=== PATIENT | male | born 1970 | race Caucasian/White ===

== ENCOUNTER → 2016-07-09 | Outpatient (CLI) | payer OTHER ==
[2015-11-02 19:43] VITALS: BP 142/84
--- NOTE | 2016-07-12 15:03 | MRI ---
HISTORY: LEFT SHOULDER PAIN. EXAM: NON CONTRAST MRI EXAM OF THE LEFT SHOULDER JOINT. TECHNIQUE: Multisequence and multiplanar T1 and T2 weighted sequences of the left shoulder were obta ined without the administration of IV paramagnetic contrast at 1.5 Blanca. COMPARISON: May 31, 2016. FINDINGS: The patient has undergone previous shoulder/rotator cuff surgery with a probable Giovanni procedure/a cromioplasty, as the distal clavicle has been resected. The supraspinatus is markedly atrophic, alth ough the atretic supraspinatus tendon appears intact without evidence for a full-thickness or high-g rade rotator cuff tear. The patient has undergone a presumed biceps tenodesis with postsurgical lane ges seen in the humeral head as well. No displaced labral tear is seen. There is no evidence for sub acromial or subdeltoid bursitis. 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 The subscapularis is intact. No acute fracture or pathologic bone marrow edema is seen. No other mu sculoskeletal injuries or abnormalities are identified. IMPRESSION: The patient has undergone previous shoulder/rotator cuff surgery with a probable Giovanni procedure/a cromioplasty, as the distal clavicle has been resected. The supraspinatus is markedly atrophic, alth ough the atretic supraspinatus tendon appears intact without evidence for a full-thickness or high-g rade rotator cuff tear. The patient has undergone a presumed biceps tenodesis with postsurgical lane ges seen in the humeral head as well. No displaced labral tear is seen. There is no evidence for sub acromial or subdeltoid bursitis. 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 The subscapularis is intact. No acute fracture or pathologic bone marrow edema is seen. No other mu sculoskeletal injuries or abnormalities are identified. Reported By:
== END ==
LOC: RAD 09:03
PROVIDERS: ATTEND Orthopaedic Surgery
DX: M25.511 Pain in right shoulder (principal)
CPT/HCPCS: 73221

== ENCOUNTER 2016-09-17 12:04 | Emergency (ER) | payer OTHER ==
[2016-09-17 12:09] VITALS: BP 157/100; BMI 29.2
--- NOTE | 2016-09-17 12:20 | DR.GENAD ---
HPI - PCP Primary Care Physician: ALEXA - Complaint/Symptoms Chief Complaint:: PT. STATES HE WAS EATING A BOXED DIGORNIO PIZZA LAST NIGHT FROM [place] AND HAD SWALLOWED SEVERAL SLICES BEFORE HE REALIZED THERE WERE METAL PIECES IN THE PIZZA. PT. C/O ABDOMINAL DISCOMFORT. - Source History Provided: Patient - Mode of Arrival Mode of Arrival: Ambulatory - Timing Onset of Chief Complaint: 09/16/16 PMH - PMH Past Medical History: No Past Medical History: Kidney Stones Past Surgical History: Yes Surgical History: Tonsillectomy, Other - Family History History of Family Medical Conditions: Yes Family Medical History: Cancer - Social History Does patient currently use any type of tobacco product: No Have you used tobacco products in the last 12 months: No Type of Tobacco Use: None Does any household member use tobacco: No Alcohol Use: None Do you use any recreational Drugs:: No Lives With: Family Lives Where: Home - infectious screening In the last 2 months have you had wt loss of >10#?: NO Have you had fever, night sweats or hemotysis?: No Have you traveled outside the country in the last 6 months?: No Isolation: Standard PE - Vital Signs Vitals: Temperature 98.1 F Pulse Rate 74 Respiratory Rate 18 Blood Pressure [Right Arm] 120/70 Blood Pressure 157/100 O2 Sat by Pulse Oximetry 96 - Discharge Plan Condition: Stable - Follow ups/Referrals Follow ups/Referrals: Mo Pitts [Primary Care Provider] - 3 days - Instructions
--- NOTE | 2016-09-17 12:35 | DR.GENAD ---
HPI - PCP Primary Care Physician: ALEXA - Complaint/Symptoms Chief Complaint Doctors Comments: Patient reports that he ate pizza on two days ago, today started to eat additional pieces and noted metal fragments. Denies blood. Chief Complaint:: PT. STATES HE WAS EATING A BOXED DIGORNIO PIZZA LAST NIGHT FROM [employer] AND HAD SWALLOWED SEVERAL SLICES BEFORE HE REALIZED THERE WERE METAL PIECES IN THE PIZZA. PT. C/O ABDOMINAL DISCOMFORT. - Source History Provided: Patient - Mode of Arrival Mode of Arrival: Ambulatory - Timing Onset of Chief Complaint: 09/16/16 PMH - PMH Past Medical History: No Past Medical History: Kidney Stones Past Surgical History: Yes Surgical History: Tonsillectomy, Other - Family History History of Family Medical Conditions: Yes Family Medical History: Cancer - Social History Does patient currently use any type of tobacco product: No Have you used tobacco products in the last 12 months: No Type of Tobacco Use: None Does any household member use tobacco: No Alcohol Use: None Do you use any recreational Drugs:: No Lives With: Family Lives Where: Home - infectious screening In the last 2 months have you had wt loss of >10#?: NO Have you had fever, night sweats or hemotysis?: No Have you traveled outside the country in the last 6 months?: No Isolation: Standard ROS - Review of Systems Eyes: No Symptoms Reported ENTM: No Symptoms Reported Respiratoy: No Symptoms Reported Cardiovascular: No Symptoms Reported Gastrointestinal/Abdominal: No Symptoms Reported Genitourinary: No Symptoms Reported Neurological: No Symptoms Reported Musculoskeletal: No Symptoms Reported Integumentary: No Symptoms Reported Hematologic/Lymphatic: No Symptoms Reported Endocrine: No Symptoms Reported Psychiatric: No Symptoms Reported All Other Systems: Reviewed and Negative PE - Vital Signs Vitals: Temperature 98.1 F Pulse Rate 74 Respiratory Rate 18 Blood Pressure [Right Arm] 120/70 Blood Pressure 157/100 O2 Sat by Pulse Oximetry 96 - General General Appearance: Alert, In No Apparent Distress - Head Head Exam: Normal Inspection, Atraumatic - Eyes Eye exam: Normal Appearance, PERRL, EOMI - ENT ENT Exam: Normal Exam External Ear Exam: Normal External Inspection TM/Canal Exam: Bilateral Normal Nose Exam: Normal Nose Exam Mouth Exam: Normal Inspection Throat Exam: Normal Inspection - Neck Neck Exam: Normal Inspection - Chest Chest Inspection: Normal Inspection - Respiratory Respiratory Exam: Normal Lung Sounds Bilat Respiratory Exam: Bilateral Clear to Auscultation - Cardiovascular Cardiovascular Exam: Regular Rate, Normal Rhythm - Abdominal Exam Abdominal Exam: Normal Inspection, Normal Bowel Sounds Abdominal Tenderness: negative: RUQ, RLQ, LUQ, LLQ, Epigastrium, Suprapubic, Diffuse, Mild, Moderate, Severe, Other - Extremities Extremities Exam: Normal Inspection, Full ROM - Back Back Exam: Normal Inspection, Full ROM - Neurologic Neurological Exam: Alert, Oriented X3, CN II-XII Intact - Psychiatric Psychiatric Exam: Normal Affect - Skin Skin Exam: Warm, Dry, Intact ROR - XRAY XRAY Interpreted by: Radiologist (Flat and upright views of the abdomen demonstrates a normal bowel gas pattern. No free air. No abnormal calcifications or abnormal soft tissue shadows. Small radiopaque objects can be seen overlying the gastric buddle. No acute bony abnormalities. Impression: No acute cardiopulmonary disease. Small readiopaque opacities overlying the gastric bubble may represent the ingested wrapper and are likely inconsequential clinically.) - Diagnosis Discharge Problem: foreign body in abdomen - Discharge Plan Condition: Stable - Follow ups/Referrals Follow ups/Referrals: Mo Pitts [Primary Care Provider] - 3 days - Instructions
--- NOTE | 2016-09-17 12:54 | RAD ---
HISTORY: Ate metallic wrapper. Study: Frontal view of the chest, flat and upright views of the abdomen Comparison: None. Findings: Cardiomediastinal silhouette is normal in size. No focal consolidations, pleural effusions or pneumo thorax. Osseous structures are without acute abnormality. Flat and upright views of the abdomen demonstrates a normal bowel gas pattern. No free air. No abno rmal calcifications or abnormal soft tissue shadows. Small radiopaque objects can be seen overlying the gastric bubble. No acute bony abnormalities. IMPRESSION: 1. No acute cardiopulmonary disease. 2. Small radiopaque opacities overlying the gastric bubble may represent the ingested wrapper and a re likely inconsequential clinically. Reported By:
== END 2016-09-17 13:29 | disposition home or self-care (01) ==
LOC: ER 12:17
DX: T18.9XXA Foreign body of alimentary tract, part unspecified, initial encounter (principal)
CPT/HCPCS: 74022; 99282

== ENCOUNTER 2016-09-20 19:05 | Emergency (ER) | payer OTHER ==
[2016-09-20 19:14] VITALS: BP 130/90; BMI 29.7
[2016-09-20] MEDS ORDERED: NS 1000 ML 1,000 ML IV SCH (20:00)
--- NOTE | 2016-09-20 20:09 | DR.GENAD ---
HPI - PCP Primary Care Physician: Hong - HPI Comment HPI Comment: PATIENT SAID HE HAD BLOOD IN STOOL THAT WAS BRIGHT RED. BLOOD IN STOOL MINIMAL NO FEVER. DENIES SWALLOWING ANY CHEMICAL. NO VOMITING OR DIARRHEA. WAS NOT ABLE TO GIVE STOOL SPECIMEN IN ED FOR ANALYSIS. - Complaint/Symptoms Chief Complaint Doctors Comments: GI BLEED. ATE MENTAL THAT WAS ON PIZZA SEVERAL DAYS AGO. NOW HAVE GI BLEEDING. PAIN RT ABDOMEN. Chief Complaint:: " I was in here at couple days ago i swallowed a bunch of metal that was on a pizza and now i have been bleeding since 09/18/16 and having bad pain in my right abdomen. - Nurses notes reviewed Nurses Notes Review: Yes - Source History Provided: Patient - Mode of Arrival Mode of Arrival: Ambulatory - Timing Onset of Chief Complaint: 09/17/16 Came on: Gradually - Duration Duration: Intermittent Duration: Days - Severity Severity: Moderate PMH - PMH Past Medical History: Yes Past Medical History: Kidney Stones Past Surgical History: Yes Surgical History: Ortho Surgery, Tonsillectomy, Other - Family History History of Family Medical Conditions: Yes Family Medical History: Cancer - Social History Alcohol Use: Rarely Do you use any recreational Drugs:: No Lives With: Alone Lives Where: Home - infectious screening Have you traveled outside the country in the last 6 months?: No ROS - Review of Systems Constitutional: No Symptoms Reported. negative: Chills, Fever, Weakness, Fatigue, Loss of Appetite Eyes: No Symptoms Reported. negative: Eye Pain, Discharge ENTM: No Symptoms Reported. negative: Ear Pain, Nose Discharge, Nose Congestion , Throat Pain Respiratoy: No Symptoms Reported. negative: Productive Cough, Non-Productive Cough, Short of Breath, Wheezing, Hemoptysis Cardiovascular: No Symptoms Reported. negative: Chest Pain, Edema, Palpitations , Syncope Gastrointestinal/Abdominal: No Symptoms Reported, Abdominal Pain, Other (BLOOD IN STOOL.). negative: Constipation, Diarrhea, Nausea, Vomiting Genitourinary: No Symptoms Reported. negative: Dysuria, Frequency, Hematuria Neurological: No Symptoms Reported Musculoskeletal: No Symptoms Reported Integumentary: No Symptoms Reported Hematologic/Lymphatic: No Symptoms Reported Endocrine: No Symptoms Reported All Other Systems: Reviewed and Negative PE - Vital Signs Vitals: Temperature 97.6 F Pulse Rate 97 Respiratory Rate 19 Blood Pressure [Right Arm] 120/70 Blood Pressure 130/90 O2 Sat by Pulse Oximetry 98 - General Limitations: No Limitations General Appearance: Alert - Head Head Exam: Normal Inspection - Eyes Eye exam: Normal Appearance - ENT ENT Exam: Normal External Ear Exam External Ear Exam: Normal External Inspection TM/Canal Exam: Bilateral Normal Nose Exam: Normal Nose Exam Mouth Exam: Normal Inspection Throat Exam: Normal Inspection - Neck Neck Exam: Trachea Midline - Chest Chest Inspection: Symmetric Chest Wall Rise - Respiratory Respiratory Exam: Normal Lung Sounds Bilat Respiratory Exam: Bilateral Clear to Auscultation - Cardiovascular Cardiovascular Exam: Regular Rate, Normal Rhythm, Normal Heart Sounds - Abdominal Exam Abdominal Exam: Normal Bowel Sounds, Soft. negative: Tenderness - Extremities Extremities Exam: Normal Inspection - Back Back Exam: Normal Inspection - Neurologic Neurological Exam: Alert, Oriented X3 - Psychiatric Psychiatric Exam: Normal Affect, Normal Mood - Skin Skin Exam: Normal Color MDM - Differential Diagnosis Differential Diagnosis: ABDOMINAL PAIN, FB INGESTION, METAL, GI BELLD, BOWEL PERFORATION Course - Treatment Treatment: SEE ORDERS - Education/Counseling Education/Counseling: Patient, Education Educated On: Treatment, Diagnosis, Needs for Follow Up ROR - Labs Reviewed Laboratory Results Reviewed?: Yes Result Diagrams: 09/20/16 20:09 09/20/16 20:09 Laboratory: WBC 9.4 X10^3/uL (3.6-10.0) 09/20/16 20:09 RBC 4.96 X10^6/uL (4.7-6.0) 09/20/16 20:09 Hgb 14.9 g/dL (13.5-18.0) 09/20/16 20:09 Hct 43.1 % (42.0-54.0) 09/20/16 20:09 MCV 86.8 fL (80.0-100.0) 09/20/16 20:09 MCH 30.0 pg (27.0-34.0) 09/20/16 20:09 MCHC 34.6 g/dL (33.0-35.0) 09/20/16 20:09 RDW 13.1 % (11.6-16.5) 09/20/16 20:09 Plt Count 310 X10^3/uL (150.0-450.0) 09/20/16 20:09 MPV 8.1 fL (7.4-11.0) 09/20/16 20:09 Neut % 79.5 % (42.0-75.0) H 09/20/16 20:09 Lymph % 12.8 % (21.0-51.0) L 09/20/16 20:09 [place] % 6.5 % (0.0-13.0) 09/20/16 20:09 Eos % 0.5 % (0.9-2.9) L 09/20/16 20:09 Baso % 0.7 % (0.2-1.0) 09/20/16 20:09 Neut # 7.5 x10^3/uL (2.2-4.8) H 09/20/16 20:09 Lymph # 1.2 X10^3/uL (1.3-2.9) L 09/20/16 20:09 [place] # 0.6 x10^3/uL (0.3-0.8) 09/20/16 20:09 Eos # 0.0 x10^3/uL (0.0-0.2) 09/20/16 20:09 Baso # 0.1 X10^3/uL (0.0-0.1) 09/20/16 20:09 Absolute Nucleated RBC 0.0 /100WBC 09/20/16 20:09 Sodium 145 mmol/L (136-145) 09/20/16 20:09 Corrected Sodium 145 mmol/L (136-145) 09/20/16 20:09 Potassium 3.5 mmol/L (3.5-5.1) 09/20/16 20:09 Chloride 107 mmol/L (98-107) 09/20/16 20:09 Carbon Dioxide 26.1 mmol/L (21-32) 09/20/16 20:09 BUN 17 mg/dL (7-18) 09/20/16 20:09 Creatinine 1.14 mg/dL (0.70-1.30) 09/20/16 20:09 Est GFR (MDRD) Af Amer > 60 (>60) 09/20/16 20:09 Est GFR (MDRD) Non-Af > 60 (>60) 09/20/16 20:09 Glucose 115 mg/dL (65-99) H 09/20/16 20:09 Calcium 9.0 mg/dL (8.5-10.1) 09/20/16 20:09 Corrected Calcium TNP 09/20/16 20:09 Total Bilirubin 0.20 mg/dL (0.2-1.0) 09/20/16 20:09 AST 14 Units/L (15-37) L 09/20/16 20:09 ALT 35 Units/L (12-78) 09/20/16 20:09 Alkaline Phosphatase 57 Units/L (46-116) 09/20/16 20:09 Total Protein 7.4 g/dL (6.4-8.2) 09/20/16 20:09 Albumin 4.1 g/dL (3.4-5.0) 09/20/16 20:09 Globulin 3.3 g/dL (2.5-4.5) 09/20/16 20:09 Albumin/Globulin Ratio 1.2 Ratio (1.1-2.1) 09/20/16 20:09 Stool Description Fob tube 09/20/16 22:34 Stl Occult Blood (IFOB) Positive (NEGATIVE) A 09/20/16 22:34 - XRAY XRAY Interpreted by: Radiologist XRAY Findings: REPORT DISCUSS WITH PATIENT. - Diagnosis Discharge Problem: Abdominal pain Qualifiers: Abdominal location: right lower quadrant Qualified Code(s): R10.31 - Right lower quadrant pain GI bleed Qualifiers: GI bleed type/associated pathology: unspecified gastrointestinal hemorrhage type Qualified Code(s): K92.2 - Gastrointestinal hemorrhage, unspecified - Discharge Plan Disposition: 01 HOME, SELF-CARE Condition: Stable Prescriptions: Ranitidine HCl [ZANTAC TAB 150 MG *] 150 mg PO BID #60 tab - Follow ups/Referrals Follow ups/Referrals: Mo Pitts [Primary Care Provider] - 09/21/16 WILLIAM ELIAS [STAFF PHYSICIAN] - 09/21/16 - Instructions Instructions: Abdominal Pain, Adult, [id number], Gastrointestinal Bleeding, [id number] Additional Instructions: RETURN TO ED IF WORSE.
[2016-09-20 20:14] LABS: BASOPHILS # (AUTO) 0.1 X10^3/uL (0.0-0.1); BASOPHILS % (AUTO) 0.7 % (0.2-1.0); EOSINOPHILS % (AUTO) 0.5 % (0.9-2.9); HEMATOCRIT 43.1 % (42.0-54.0); HEMOGLOBIN 14.9 g/dL (13.5-18.0); LYMPHOCYTES # (AUTO) 1.2 X10^3/uL (1.3-2.9); LYMPHOCYTES % (AUTO) 12.8 % (21.0-51.0); MEAN CORPUSCULAR HGB CONC 34.6 g/dL (33.0-35.0); MEAN CORPUSCULAR VOLUME 86.8 fL (80.0-100.0); MEAN PLATELET VOLUME 8.1 fL (7.4-11.0); MONOCYTES # (AUTO) 0.6 x10^3/uL (0.3-0.8); MONOCYTES % (AUTO) 6.5 % (0.0-13.0); NEUTROPHILS # (AUTO) 7.5 x10^3/uL (2.2-4.8); NEUTROPHILS % (AUTO) 79.5 % (42.0-75.0); PLATELET COUNT 310 X10^3/uL (150.0-450.0); RED BLOOD COUNT 4.96 X10^6/uL (4.7-6.0); RED CELL DISTRIBUTION WIDTH 13.1 % (11.6-16.5); WHITE BLOOD COUNT 9.4 X10^3/uL (3.6-10.0)
[2016-09-20 20:26] LABS: ALANINE AMINOTRANSFERASE 35 Units/L (12-78); ALBUMIN 4.1 g/dL (3.4-5.0); ALKALINE PHOSPHATASE 57 Units/L (46-116); ASPARTATE AMINO TRANSFERASE 14 Units/L (15-37); BLOOD UREA NITROGEN 17 mg/dL (7-18); CARBON DIOXIDE 26.1 mmol/L (21-32); CHLORIDE 107 mmol/L (98-107); COR NA(FOR HYPERGLY) 145 mmol/L (136-145); CREATININE 1.14 mg/dL (0.70-1.30); GLUCOSE 115 mg/dL (65-99); SODIUM 145 mmol/L (136-145); TOTAL PROTEIN 7.4 g/dL (6.4-8.2); eGFR BLACK RACES > 60 (>60); eGFR NON BLACK RACES > 60 (>60)
[2016-09-20] MEDS ORDERED: NS 1000 ML 1,000 ML ONE (20:28)
--- NOTE | 2016-09-20 22:22 | CT ---
STUDY: CT ABDOMEN AND PELVIS WITHOUT IV AND ORAL CONTRAST HISTORY: Foreign body. Patient swallowed metal from a pizza. Severe abdominal pain. Right upper quad rant, lower abdomen, rectal bleeding. Comparison: CT abdomen pelvis from October 10, 2013. Technique: Multiple axial images of the abdomen and pelvis were obtained from the lung bases to the pubic symphysis without the administration of IV contrast. Findings: The visualized portions of the lung bases are unremarkable. CT abdomen: The liver, gallbladder, spleen, pancreas, kidneys, and adrenal glands are normal in appe arance. No significant mesenteric lymphadenopathy or inflammatory stranding is appreciated. There is a metallic foreign body with associated streak artifact along the lateral surface of the right lobe of the liver. This is unchanged since the prior CT examination. The stomach is normal in appearance. The small bowel is normal in appearance, without evidence of mariah wel wall thickening or small bowel obstruction. The terminal ileum and cecum are normal. The append ix is normal in appearance. There is no evidence of periappendiceal fat stranding. The ascending, t ransverse and descending colon are within normal limits. There are a number of high density foreign bodies within the lumen of the colon. There is 1 small focus in the region of the cecum. There is a linear high density focus in the transverse colon. CT pelvis: The sigmoid colon and the rectum are within normal limits. The urinary bladder is normal. No abnormal fluid collections are identified in the pelvis. There is a small high density focus in the mid sigmoid colon. There is a linear high density focus in the distal sigmoid colon near the rec tosigmoid junction. There is no evidence of acute osseous abnormality. IMPRESSION: 1. No evidence of acute abdominal or pelvic abnormality. 2. High density foci within the colon as described, possibly representing foreign bodies. These for eign bodies do not generate beam hardening are streak artifact, raising questions regarding there co mposition. Clinical correlation is recommended. 3. Small metallic foreign body with associated streak artifact adjacent to the right lobe of the li lawanda, unchanged from the prior CT. Clinical correlation is recommended. Reported By:
[2016-09-20] MEDS ORDERED: ZANTAC PO ONE ×2 (23:40→23:50)
== END 2016-09-21 00:18 | disposition home or self-care (01) ==
LOC: ER 19:17
DX: K92.2 Gastrointestinal hemorrhage, unspecified (principal); R10.31 Right lower quadrant pain
CPT/HCPCS: 36415; 74176; 80053; 82270; 85025; 96365; 96367; 99283; A4222

== ENCOUNTER 2016-09-24 09:31 | Inpatient (IN) | payer OTHER ==
[2016-09-24 09:36] VITALS: BMI 29.0
--- NOTE | 2016-09-24 10:02 | DR.GENAD ---
HPI - PCP Primary Care Physician: ALEXA - HPI Comment HPI Comment: HISTORY BELOW. PATIENT SAID PAIN MOST IN RUQ AREA. - Complaint/Symptoms Chief Complaint Doctors Comments: PATIENT ATE P[place]AN[place] ALLEGE TO HAVE PIECES OF METSLS. SEEN IN ED, KUB REVEAL FB. RETUR TO ED DUE TO RECTAL BLEEDING. NON CONTRAST CT ABD/PELVIS SHOWEWD COLONIC FB, TODAY, PATIENT RETURN TO ED BECAUSE HE IE VOMITING BLOOD AND HAVING ABDOMINAL PAIN. NO ACTIVE VOMITING WHILE IN ED. STILL HAVING ABDOMIAL PAIN.STOOLS CONTINUE TO CONTAIN BLOOD. NO FEVER. Chief Complaint:: PT STARTED THROWING UP BLOOD THIS MORNING PT SWOLLED METTLE ON THE OF THIS MONTH - Nurses notes reviewed Nurses Notes Review: Yes - Source History Provided: Patient - Mode of Arrival Mode of Arrival: Ambulatory - Timing Onset of Chief Complaint: 09/15/16 Came on: Suddenly - Duration Duration: Constant Duration: Days - Severity Severity: Moderate PMH - PMH Past Medical History: Yes Past Medical History: Kidney Stones Past Surgical History: Yes Surgical History: Ortho Surgery, Tonsillectomy, Other - Family History History of Family Medical Conditions: Yes Family Medical History: Cancer - Social History Does patient currently use any type of tobacco product: No Have you used tobacco products in the last 12 months: No Type of Tobacco Use: None Does any household member use tobacco: No Alcohol Use: None Do you use any recreational Drugs:: No Lives With: Family Lives Where: Home - infectious screening In the last 2 months have you had wt loss of >10#?: NO Have you had fever, night sweats or hemotysis?: No Have you traveled outside the country in the last 6 months?: No Isolation: Standard ROS - Review of Systems Constitutional: negative: Chills, Fever, Weakness, Fatigue Eyes: No Symptoms Reported ENTM: No Symptoms Reported Respiratoy: No Symptoms Reported Cardiovascular: No Symptoms Reported Gastrointestinal/Abdominal: Abdominal Pain Genitourinary: Bleeding (RECTUM, HEMATEMESIS) Neurological: No Symptoms Reported Musculoskeletal: No Symptoms Reported Integumentary: No Symptoms Reported Hematologic/Lymphatic: No Symptoms Reported Endocrine: No Symptoms Reported All Other Systems: Reviewed and Negative PE - Vital Signs Vitals: Temperature 97.6 F Pulse Rate 87 Respiratory Rate 18 Blood Pressure [Right Arm] 120/70 Blood Pressure 126/79 O2 Sat by Pulse Oximetry 98 - General Limitations: No Limitations General Appearance: Alert - Head Head Exam: Normal Inspection - ENT ENT Exam: Normal External Ear Exam External Ear Exam: Normal External Inspection TM/Canal Exam: Bilateral Normal Nose Exam: Normal Nose Exam Mouth Exam: Normal Inspection Throat Exam: Normal Inspection - Neck Neck Exam: Normal Inspection - Chest Chest Inspection: Symmetric Chest Wall Rise - Respiratory Respiratory Exam: Normal Lung Sounds Bilat Respiratory Exam: Bilateral Clear to Auscultation - Cardiovascular Cardiovascular Exam: Regular Rate, Normal Rhythm, Normal Heart Sounds - Abdominal Exam Abdominal Exam: Normal Bowel Sounds, Soft, Tenderness Abdominal Tenderness: RUQ, Diffuse, Moderate - Extremities Extremities Exam: Normal Inspection - Back Back Exam: Normal Inspection - Neurologic Neurological Exam: Alert, Oriented X3 - Psychiatric Psychiatric Exam: Normal Affect, Normal Mood - Skin Skin Exam: Normal Color MDM - Differential Diagnosis Differential Diagnosis: ABDOMINAL PAIN, GI BLEEDING Course - Treatment Treatment: SEE ORDERS. IV FLUIDS AND PAIN MED IN ED. - Consultation Consultation Comments: DISCUSS WITH GI DR. ELIAS, DR LIU TO ADMIT PATIENT. HE WILL SEE HIM TOMORROW. DR. LIU ACCETPTED PATIENT FOR ADMIT. - Education/Counseling Education/Counseling: Patient, Education Educated On: Diagnosis ROR - Labs Reviewed Laboratory Results Reviewed?: Yes Result Diagrams: 09/25/16 03:45 09/25/16 03:45 - XRAY XRAY Interpreted by: Radiologist XRAY Findings: REPORT DISCUSS WITH PATIENT. - Diagnosis Discharge Problem: RUQ abdominal pain Abdominal pain Qualifiers: Abdominal location: generalized Qualified Code(s): R10.84 - Generalized abdominal pain GI bleed Qualifiers: GI bleed type/associated pathology: unspecified gastrointestinal hemorrhage type Qualified Code(s): K92.2 - Gastrointestinal hemorrhage, unspecified - Discharge Plan Disposition: ADMITTED INPATIENT Condition: Stable - Follow ups/Referrals - Instructions
[2016-09-24] MEDS ORDERED: NS 100 ML IV 100 ML IV ONE (10:09)
[2016-09-24] MEDS ORDERED: PROTONIX INJ 40 MG VIAL ONE (10:09)
[2016-09-24] MEDS ORDERED: ZOFRAN INJ 4 MG VIAL IVP ONE (10:23)
[2016-09-24] MEDS ORDERED: DEMEROL INJ IVP ONE (10:24)
[2016-09-24] MEDS ORDERED: DEMEROL INJ ONE (10:25)
[2016-09-24] MEDS ORDERED: ZOFRAN INJ 4 MG VIAL ONE (10:25)
[2016-09-24 10:39] LABS: BASOPHILS % (AUTO) 0.6 % (0.2-1.0); EOSINOPHILS # (AUTO) 0.1 x10^3/uL (0.0-0.2); EOSINOPHILS % (AUTO) 0.8 % (0.9-2.9); HEMOGLOBIN 15.8 g/dL (13.5-18.0); LYMPHOCYTES # (AUTO) 0.9 X10^3/uL (1.3-2.9); LYMPHOCYTES % (AUTO) 11.8 % (21.0-51.0); MEAN CORPUSCULAR HGB CONC 34.3 g/dL (33.0-35.0); MEAN CORPUSCULAR VOLUME 87.3 fL (80.0-100.0); MEAN PLATELET VOLUME 8.2 fL (7.4-11.0); MONOCYTES # (AUTO) 0.5 x10^3/uL (0.3-0.8); NEUTROPHILS # (AUTO) 6.3 x10^3/uL (2.2-4.8); NEUTROPHILS % (AUTO) 79.8 % (42.0-75.0); PLATELET COUNT 297 X10^3/uL (150.0-450.0); RED BLOOD COUNT 5.27 X10^6/uL (4.7-6.0); WHITE BLOOD COUNT 7.9 X10^3/uL (3.6-10.0)
[2016-09-24] MEDS: NS 1000 ML 1,000 ML IV SCH ×2 (10:43→19:07)
[2016-09-24] MEDS: PROTONIX INJ 40 MG VIAL 80 MG in NS 100 ML IV 80 ML IV SCH ×2 (10:43→19:07)
[2016-09-24 10:44] LABS: ALANINE AMINOTRANSFERASE 38 Units/L (12-78); ALBUMIN 4.3 g/dL (3.4-5.0); ALKALINE PHOSPHATASE 60 Units/L (46-116); AMYLASE 28 Units/L (25-115); ASPARTATE AMINO TRANSFERASE 15 Units/L (15-37); BLOOD UREA NITROGEN 15 mg/dL (7-18); CALCIUM 9.1 mg/dL (8.5-10.1); CARBON DIOXIDE 28.4 mmol/L (21-32); CHLORIDE 103 mmol/L (98-107); CREATININE 1.01 mg/dL (0.70-1.30); GLUCOSE 103 mg/dL (65-99); LIPASE 70 Units/L (73-393); SODIUM 141 mmol/L (136-145); TOTAL PROTEIN 7.9 g/dL (6.4-8.2); eGFR BLACK RACES > 60 (>60); eGFR NON BLACK RACES > 60 (>60)
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
[2016-09-24] MEDS ORDERED: ZOFRAN INJ 4 MG VIAL IVP PRN (12:56)
[2016-09-24] MEDS: DEMEROL INJ IVP PRN ×2 (14:15→20:40)
[2016-09-24 23:10] LABS: BILIRUBIN,URINE NEGATIVE (NEGATIVE); BLOOD/HEMOGLOBIN,URINE NEGATIVE (NEGATIVE); GLUCOSE, URINE NEGATIVE (NEGATIVE); KETONES,URINE NEGATIVE (NEGATIVE); LEUKOCYTE ESTERASE ,URINE NEGATIVE (NEGATIVE); NITRITES,URINE NEGATIVE (NEGATIVE); PROTEIN,URINE NEGATIVE (NEGATIVE); UROBILINOGEN,URINE NORMAL (NORMAL)
[2016-09-24 23:17] LABS: AMORPHOUS SEDIMENT,UR TRACE /HPF (NEGATIVE); APPEARANCE,URINE CLEAR (CLEAR); BACTERIA,URINE NEGATIVE /HPF (NEGATIVE); COLOR,URINE PALE YELLOW (YELLOW); RBC,URINE 0-1 /HPF (NEGATIVE); SQUAMOUS EPITHELIAL CELL,UR NEGATIVE /HPF (NEGATIVE)
[2016-09-25] MEDS: NS 1000 ML 1,000 ML IV SCH ×3 (02:49→19:01)
[2016-09-25] MEDS: DEMEROL INJ IVP PRN ×4 (02:49→21:09)
[2016-09-25] MEDS: PROTONIX INJ 40 MG VIAL 80 MG in NS 100 ML IV 80 ML IV SCH ×3 (02:50→07:49)
[2016-09-25 05:06] LABS: BASOPHILS % (AUTO) 0.3 % (0.2-1.0); EOSINOPHILS # (AUTO) 0.1 x10^3/uL (0.0-0.2); EOSINOPHILS % (AUTO) 1.3 % (0.9-2.9); HEMATOCRIT 40.8 % (42.0-54.0); HEMOGLOBIN 13.9 g/dL (13.5-18.0); LYMPHOCYTES # (AUTO) 1.4 X10^3/uL (1.3-2.9); LYMPHOCYTES % (AUTO) 15.8 % (21.0-51.0); MEAN CORPUSCULAR HEMOGLOBIN 29.8 pg (27.0-34.0); MEAN CORPUSCULAR HGB CONC 34.2 g/dL (33.0-35.0); MEAN CORPUSCULAR VOLUME 87.2 fL (80.0-100.0); MEAN PLATELET VOLUME 8.4 fL (7.4-11.0); MONOCYTES # (AUTO) 0.6 x10^3/uL (0.3-0.8); MONOCYTES % (AUTO) 6.8 % (0.0-13.0); NEUTROPHILS # (AUTO) 6.5 x10^3/uL (2.2-4.8); NEUTROPHILS % (AUTO) 75.8 % (42.0-75.0); PLATELET COUNT 249 X10^3/uL (150.0-450.0); RED BLOOD COUNT 4.67 X10^6/uL (4.7-6.0); WHITE BLOOD COUNT 8.6 X10^3/uL (3.6-10.0)
[2016-09-25 05:22] LABS: ALANINE AMINOTRANSFERASE 32 Units/L (12-78); ALBUMIN 3.4 g/dL (3.4-5.0); ALKALINE PHOSPHATASE 45 Units/L (46-116); ASPARTATE AMINO TRANSFERASE 14 Units/L (15-37); BLOOD UREA NITROGEN 7 mg/dL (7-18); CALCIUM 8.6 mg/dL (8.5-10.1); CHLORIDE 109 mmol/L (98-107); GLUCOSE 92 mg/dL (65-99); SODIUM 144 mmol/L (136-145); TOTAL PROTEIN 6.4 g/dL (6.4-8.2); eGFR BLACK RACES > 60 (>60); eGFR NON BLACK RACES > 60 (>60)
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
--- NOTE | 2016-09-25 13:18 | PCM.PROG ---
Progress Note - Progress Note for Day of Date: 09/25/16 - Subjective Subjective: Patient states he is feeling ok this am still has abdominal pain and has not had anymore episodes of vomiting. Physical exam reveal diffuse abdominal tenderness. Dr. Jones should be by today to consult and possibly scope patient. Vital signs this am 97.8, 55, 17, 98% 120/76. Abdomen Xray this am shows No acute cardiopulmonary process, no evidence for acute abdominal pathology identified. Labs this am within normal limits with the exception of RBC 4.67, Hct 40.8, Neut% 75.8, Lymph% 15.8, Neut# 6.5, Chloride 109, AST 14, Alkaline phosphate 45. We are going to continue patient on current medications including NS@ 125ml/hr and protonix drip, Demerol for pain and Zofran as need for nausea and vomiting. - Past Medical Family Social History Past Med/Fam/Surg Hx: No changes since H&P Allergies: Allergies MS No Known Drug Allergy [No Known Drug Allergy] Allergy (Verified 09/17/16 12: 09) - Review of Systems ROS: No change since H&P - Vital Signs and I&O's Vital Signs: 97.8, 55, 17, 98% 120/76. - Physical Exam Oriented: Normal Eyes: Normal Ear: Normal Nose: Normal Throat: Normal Respiratory: Normal Cardiovascular: Normal : Normal Auscultation: Bowel Sounds: Normal Tenderness: Diffuse Skin: Normal Musculoskeletal: Normal Psychiatric: Normal Mood Description: Calm, Appropriate Affect: Normal Speech Pattern: Clear, Appropriate - Laboratory and Diagnostics Result Diagrams: 09/25/16 03:45 09/25/16 03:45 Labs: Laboratory WBC 8.6 X10^3/uL (3.6-10.0) 09/25/16 03:45 RBC 4.67 X10^6/uL (4.7-6.0) L 09/25/16 03:45 Hgb 13.9 g/dL (13.5-18.0) 09/25/16 03:45 Hct 40.8 % (42.0-54.0) L 09/25/16 03:45 MCV 87.2 fL (80.0-100.0) 09/25/16 03:45 MCH 29.8 pg (27.0-34.0) 09/25/16 03:45 MCHC 34.2 g/dL (33.0-35.0) 09/25/16 03:45 RDW 13.0 % (11.6-16.5) 09/25/16 03:45 Plt Count 249 X10^3/uL (150.0-450.0) 09/25/16 03:45 MPV 8.4 fL (7.4-11.0) 09/25/16 03:45 Neut % 75.8 % (42.0-75.0) H 09/25/16 03:45 Lymph % 15.8 % (21.0-51.0) L 09/25/16 03:45 Z[place]ata % 6.8 % (0.0-13.0) 09/25/16 03:45 Eos % 1.3 % (0.9-2.9) 09/25/16 03:45 Baso % 0.3 % (0.2-1.0) 09/25/16 03:45 Neut # 6.5 x10^3/uL (2.2-4.8) H 09/25/16 03:45 Lymph # 1.4 X10^3/uL (1.3-2.9) 09/25/16 03:45 Zapata # 0.6 x10^3/uL (0.3-0.8) 09/25/16 03:45 Eos # 0.1 x10^3/uL (0.0-0.2) 09/25/16 03:45 Baso # 0.0 X10^3/uL (0.0-0.1) 09/25/16 03:45 Absolute Nucleated RBC 0.1 /100WBC 09/25/16 03:45 INR Target Range - 09/24/16 10:22 INR 0.99 (0.8-1.3) 09/24/16 10:22 PTT 26.4 SECONDS (22.9-36.5) 09/24/16 10:22 PTT Comment - 09/24/16 10:22 Sodium 144 mmol/L (136-145) 09/25/16 03:45 Corrected Sodium TNP 09/25/16 03:45 Potassium 4.1 mmol/L (3.5-5.1) 09/25/16 03:45 Chloride 109 mmol/L (98-107) H 09/25/16 03:45 Carbon Dioxide 26.0 mmol/L (21-32) 09/25/16 03:45 BUN 7 mg/dL (7-18) 09/25/16 03:45 Creatinine 0.90 mg/dL (0.70-1.30) 09/25/16 03:45 Est GFR (MDRD) Af Amer > 60 (>60) 09/25/16 03:45 Est GFR (MDRD) Non-Af > 60 (>60) 09/25/16 03:45 Glucose 92 mg/dL (65-99) 09/25/16 03:45 Calcium 8.6 mg/dL (8.5-10.1) 09/25/16 03:45 Corrected Calcium TNP 09/25/16 03:45 Total Bilirubin 0.30 mg/dL (0.2-1.0) 09/25/16 03:45 AST 14 Units/L (15-37) L 09/25/16 03:45 ALT 32 Units/L (12-78) 09/25/16 03:45 Alkaline Phosphatase 45 Units/L (46-116) L 09/25/16 03:45 Total Protein 6.4 g/dL (6.4-8.2) 09/25/16 03:45 Albumin 3.4 g/dL (3.4-5.0) 09/25/16 03:45 Globulin 3.0 g/dL (2.5-4.5) 09/25/16 03:45 Albumin/Globulin Ratio 1.1 Ratio (1.1-2.1) 09/25/16 03:45 Amylase 28 Units/L (25-115) 09/24/16 10:22 Lipase 70 Units/L (73-393) L 09/24/16 10:22 Specimen Type Clean catch urine 09/24/16 22:35 Urine Color Pale yellow (YELLOW) 09/24/16 22:35 Urine Appearance Clear (CLEAR) 09/24/16 22:35 Urine pH 7.0 (5.0 - 8.0) 09/24/16 22:35 Ur Specific Rogers 1.010 (1.000-1.030) 09/24/16 22:35 Urine Protein Negative (NEGATIVE) 09/24/16 22:35 Urine Glucose (UA) Negative (NEGATIVE) 09/24/16 22:35 Urine Ketones Negative (NEGATIVE) 09/24/16 22:35 Urine Occult Blood Negative (NEGATIVE) 09/24/16 22:35 Urine Nitrite Negative (NEGATIVE) 09/24/16 22:35 Urine Bilirubin Negative (NEGATIVE) 09/24/16 22:35 Urine Urobilinogen Normal (NORMAL) 09/24/16 22:35 Ur Leukocyte Esterase Negative (NEGATIVE) 09/24/16 22:35 Urine RBC 0-1 /HPF (NEGATIVE) 09/24/16 22:35 Urine WBC None seen /HPF (NEGATIVE) 09/24/16 22:35 Ur Squamous Epith Cells Negative /HPF (NEGATIVE) 09/24/16 22:35 Amorphous Sediment Trace /HPF (NEGATIVE) 09/24/16 22:35 Urine Bacteria Negative /HPF (NEGATIVE) 09/24/16 22:35 Ur Culture Indicated? No/not indicated 09/24/16 22:35 Radiology Reviewed: Yes - Plan (1) Vomiting blood Status: Acute Qualifiers: Nausea presence: N Plan: Zofran 4mg Q8hr PRN. protonix drip at 8mg/hr, consult irfan (2) Abdominal pain Status: Acute Qualifiers: Abdominal location: generalized Qualified Code(s): R10.84 - Generalized abdominal pain Plan: Demerol 25mg IV q6hr PRN pain, protonix drip at 8mg/hr, consult irfan (3) GI bleed Status: Acute Qualifiers: GI bleed type/associated pathology: unspecified gastrointestinal hemorrhage type Gastritis type: G Qualified Code(s): K92.2 - Gastrointestinal hemorrhage, unspecified Plan: Consult Irfan, protonix drip at 8mg/hr
[2016-09-25] MEDS ORDERED: DIPRIVAN VIAL 20 ML ONE (13:41)
[2016-09-25] MEDS ORDERED: XYLOCAINE 2 % (PLAIN) ONE (13:41)
[2016-09-25] MEDS: CHRONULAC PO SCH ×3 (15:23→19:00)
[2016-09-25] MEDS: PROTONIX INJ 40 MG VIAL IVP SCH (21:08)
[2016-09-26] MEDS: NS 1000 ML 1,000 ML IV SCH (02:36)
[2016-09-26] MEDS: DEMEROL INJ IVP PRN ×2 (02:37→08:23)
[2016-09-26 05:17] LABS: ALANINE AMINOTRANSFERASE 29 Units/L (12-78); ALBUMIN 3.4 g/dL (3.4-5.0); ALKALINE PHOSPHATASE 47 Units/L (46-116); ASPARTATE AMINO TRANSFERASE 13 Units/L (15-37); BLOOD UREA NITROGEN 8 mg/dL (7-18); CARBON DIOXIDE 23.9 mmol/L (21-32); CHLORIDE 108 mmol/L (98-107); CREATININE 0.88 mg/dL (0.70-1.30); GLUCOSE 93 mg/dL (65-99); SODIUM 143 mmol/L (136-145); TOTAL PROTEIN 6.5 g/dL (6.4-8.2); eGFR BLACK RACES > 60 (>60); eGFR NON BLACK RACES > 60 (>60)
[2016-09-26 05:30] LABS: BASOPHILS % (AUTO) 0.6 % (0.2-1.0); EOSINOPHILS # (AUTO) 0.1 x10^3/uL (0.0-0.2); EOSINOPHILS % (AUTO) 1.1 % (0.9-2.9); HEMATOCRIT 41.4 % (42.0-54.0); HEMOGLOBIN 14.2 g/dL (13.5-18.0); LYMPHOCYTES # (AUTO) 1.2 X10^3/uL (1.3-2.9); LYMPHOCYTES % (AUTO) 15.2 % (21.0-51.0); MEAN CORPUSCULAR HEMOGLOBIN 29.9 pg (27.0-34.0); MEAN CORPUSCULAR HGB CONC 34.4 g/dL (33.0-35.0); MEAN PLATELET VOLUME 8.6 fL (7.4-11.0); MONOCYTES # (AUTO) 0.5 x10^3/uL (0.3-0.8); MONOCYTES % (AUTO) 6.3 % (0.0-13.0); NEUTROPHILS # (AUTO) 6.2 x10^3/uL (2.2-4.8); NEUTROPHILS % (AUTO) 76.8 % (42.0-75.0); PLATELET COUNT 245 X10^3/uL (150.0-450.0); RED BLOOD COUNT 4.76 X10^6/uL (4.7-6.0); RED CELL DISTRIBUTION WIDTH 13.3 % (11.6-16.5)
[2016-09-26] MEDS: PROTONIX INJ 40 MG VIAL IVP SCH (08:23)
[2016-09-26 12:09] VITALS: BP 138/89
--- NOTE | 2016-09-26 14:44 | DR.CARTERD ---
- Discharge Summary for: Discharge Summary for Date of:: 09/26/16 - Admission Date Date of Admission: 09/24/16 - Admission Diagnoses Admission Diagnosis: GI Bleed. Abdominal Pain - Discharge Date Discharge Date: 09/26/16 - Discharge Diagnoses Discharge Diagnosis: GI Bleed Abdominal Pain - Hospital Course Hospital Course: Patient is a 46 yo male who presented to the emergency room with complaints of vomiting blood and passing blood in the stool. Patient stated that on the of this month he ate a pizza that had metal on it and did not realize this until he had already ate several pieces. Patient had an abdomen pelvis CT performed on 09/20 which showed No evidence of acute abdominal or pelvic abnormality, high density foci within the colon as described, possibly representing foreign bodies, these foreign bodies do not generate beam hardening are streak artifact, raising questions regarding there composition, small metallic foreign body with associated streak artifact adjancent to the right lobe of the liver clinical correlation is recommended. Abdomen xray performed in the ER shows No acute cardiopulmonary process, no evidence for acute abdominal pathology identified. Physical exam reveals diffuse moderate tenderness of abdomen. Labs in ED were within normal limits with the exception of Neut% 79.8, Lymph% 11.8, Eos% 0.8, neut# 6.3, Lymph# 0.9, potassium 3.4, Glucose 103, Lipase 70. Patient admitted with diagnosis of Abdominal pain and GI Bleed. Dr Jones consulted and patient started on NS @ 125 ml/hr, protonix drip at 8mg/hr, Demerol 25mg IV q6hr PRN pain, Zofran 4mg Q8hr PRN. Dr Jones performed an endoscopy which showed multiple small antral gastric ulcers and erosive gastritits, distal esophagus with irregular Zline and recommended for patient to be on protonix 40mg PO BID and follow up outpatient for colonoscopy, Patient still has complaints of crampy abdominal pain we are going to order a gallbladder sonogram. We will discharge patient home past this US with prescription for protonix 40mg PO BID. And he will follow up in office in 1 week and outpatient HIDA scan will be ordered. Labs: Labs this am within normal limits with the exception of Hct 41.4, Neut% 76.8, Lymph% 15.2, Neut# 6.2, Lymph# 1.2, Chloride 108, Calcium 8.0, AST 13 - Discharge Medications Discharge Medications: Pantoprazole Sodium 40 mg [Protonix Tab 40 mg] 40 mg PO BID #60 tab 09/26/16 [Rx ] - Discharge Disposition Discharge Disposition: Home with follow up
--- NOTE | 2016-09-26 15:23 | US ---
HISTORY: Abdominal pain. Study: Right upper quadrant abdominal ultrasound Comparison: None. Technique: Multiple douglas scale and color flow Doppler images of the right upper quadrant were obtain ed. Findings: The liver demonstrates increased echogenicity consistent with diffuse fatty infiltration. No focal intraparenchymal mass or intrahepatic biliary ductal dilatation can be observed. The gallbladder fa ils to demonstrate evidence for cholelithiasis or layering sludge. The common bile duct is unremark able measuring 4 mm. No pericholecystic fluid or gallbladder wall thickening can be observed. The right kidney appears normal in size without focal parenchymal mass or nephrolithiasis. The righ t kidney measurers 10.1 cm. No hydronephrosis or perirenal fluid can be observed. The pancreas is largely obscured by overlying bowel gas. IMPRESSION: 1. No sonographic evidence to suggest cholelithiasis or cholecystitis. 2. Hepatic steatosis. Reported By:
== END 2016-09-26 15:30 | disposition home or self-care (01) | DRG 379 ==
LOC: ER 09:39 → MED/SURG 12:41 → OBSVTOIN 09-25 08:30
PROVIDERS: ADMIT Internal Medicine; ATTEND Internal Medicine
PROC: 0DB88ZX Excision of Small Intestine, Via Natural or Artificial Opening Endoscopic, Diagnostic (ICD-10-PCS; 2016-09-25)
PROC: 0DB68ZX Excision of Stomach, Via Natural or Artificial Opening Endoscopic, Diagnostic (ICD-10-PCS; principal; 2016-09-25 14:00)
DX: K92.0 Hematemesis (principal); R10.11 Right upper quadrant pain; K92.2 Gastrointestinal hemorrhage, unspecified; T18.4XXA Foreign body in colon, initial encounter; K25.4 Chronic or unspecified gastric ulcer with hemorrhage; K29.00 Acute gastritis without bleeding; K20.8 Other esophagitis
CPT/HCPCS: 36415; 74022; 76705; 80053; 81001; 82150; 83690; 85025; 85610; 85730; 96365; 96367; 96374; 96375; 99284; A4222; C9113; A4217; G0378; J2001; J2175; J2405; J3490

== ENCOUNTER → 2016-10-04 | Outpatient (CLI) | payer OTHER ==
[2016-09-26 12:09] VITALS: BP 138/89
--- NOTE | 2016-10-04 14:02 | NM ---
HISTORY: Abdominal pain. Study: Nuclear medicine HIDA scan with ejection fraction Comparison: Right upper quadrant ultrasound dated September 26, 2016. Technique: Multiple scintigraphic images of the abdomen were obtained the intravenous administration of 5.1 mCi of technetium labeled Choletec. Following distention of the gallbladder with radiotracer the patient the ingested 8 oz. Ensure. An e stimated gallbladder ejection fraction was calculated based on the physiologic response of this infu iraida. Findings: Homogeneous uptake of radiotracer is seen throughout the liver. This intrabiliary ductal system is observed normally. The common hepatic and common bile duct grossly appear unremarkable with normal biliary-bowel transit. The gallbladder is observed to fill normally. After the IV administration of Kinevac, a gallbladder ejection fraction of 13.8% (normal > 35%) is o bserved. IMPRESSION: 1. Normal hepatobiliary imaging scan. 2. Abnormal gallbladder ejection fraction consistent with gallbladder dysfunction. Reported By:
== END | disposition home or self-care (01) ==
LOC: RAD 10:52
PROVIDERS: ATTEND Internal Medicine
DX: R10.84 Generalized abdominal pain (principal)
CPT/HCPCS: 78227

== ENCOUNTER 2016-10-10 09:55 | Day surgery (SDC) | payer OTHER ==
[2016-10-10] MEDS ORDERED: KENALOG INJ 40 MG ONE (13:12)
[2016-10-10] MEDS ORDERED: MARCAINE/EPINEPHRINE ONE (13:12)
[2016-10-10] MEDS ORDERED: XYLOCAINE 2 % (PLAIN) ONE (13:12)
--- NOTE | 2016-10-10 13:28 | DR.UPDATE ---
H&P Update History and Physical Update: History and Physical reviewed and patient examined. Changes noted: NO Yes with the following:agree with Dr Cloud H&P. will proceed with right SI joint injection.
[2016-10-10 14:04] VITALS: BP 136/74
== END 2016-10-10 14:03 | disposition home or self-care (01) | DRG 552 ==
LOC: SURG1 09:55
PROVIDERS: ATTEND Specialist
PROC: 3E0U3BZ Introduction of Anesthetic Agent into Joints, Percutaneous Approach (ICD-10-PCS; 2016-10-10)
PROC: 3E0U33Z Introduction of Anti-inflammatory into Joints, Percutaneous Approach (ICD-10-PCS; principal; 2016-10-10 10:00)
DX: M53.3 Sacrococcygeal disorders, not elsewhere classified (principal)
CPT/HCPCS: 20610; 76000; S0020; J2001; J3301

== ENCOUNTER 2016-10-25 09:39 | Day surgery (SDC) | payer OTHER ==
[2016-10-25] MEDS ORDERED: D5 LR 1000 ML 1,000 ML IV ONE (09:47)
[2016-10-25] MEDS ORDERED: DIPRIVAN VIAL 20 ML ONE (10:44)
[2016-10-25 11:27] VITALS: BP 122/78
== END 2016-10-25 11:32 | disposition home or self-care (01) ==
LOC: SURG1 09:39
PROVIDERS: ATTEND Internal Medicine Gastroenterology
PROC: 0DJD8ZZ Inspection of Lower Intestinal Tract, Via Natural or Artificial Opening Endoscopic (ICD-10-PCS; principal; 2016-10-25 13:30)
DX: K92.1 Melena (principal); R10.13 Epigastric pain; K64.0 First degree hemorrhoids; K25.9 Gastric ulcer, unspecified as acute or chronic, without hemorrhage or perforation; Z80.0 Family history of malignant neoplasm of digestive organs
CPT/HCPCS: A4217; J3490; J7120

== ENCOUNTER 2016-12-11 10:49 | Day surgery (SDC) | payer OTHER ==
[2016-12-11] MEDS ORDERED: XYLOCAINE 1 % (PLAIN) ONE (11:51)
[2016-12-11] MEDS ORDERED: KENALOG INJ 40 MG ONE (11:51)
[2016-12-11] MEDS ORDERED: MARCAINE 0.5% ONE (11:51)
--- NOTE | 2016-12-11 11:51 | DR.UPDATE ---
H&P Update History and Physical Update: History and Physical reviewed and patient examined. Office H&P unchanged. Pt here for R SI joint injection after previous unsuccessful attempts. Will perform
[2016-12-11 12:31] VITALS: BP 127/81
== END 2016-12-11 12:25 | disposition home or self-care (01) ==
LOC: SURG1 10:49
PROVIDERS: ATTEND Specialist
PROC: 3E0U33Z Introduction of Anti-inflammatory into Joints, Percutaneous Approach (ICD-10-PCS; principal; 2016-12-11 11:00)
DX: M25.551 Pain in right hip (principal); M53.3 Sacrococcygeal disorders, not elsewhere classified; M19.011 Primary osteoarthritis, right shoulder
CPT/HCPCS: 20610; 76000; S0020; J2001; J3301

== ENCOUNTER 2017-02-18 09:46 | Day surgery (SDC) | payer OTHER ==
[2017-02-18] MEDS ORDERED: KENALOG INJ 40 MG IM ONE (10:13)
[2017-02-18] MEDS ORDERED: XYLOCAINE 1 % (PLAIN) ONE (10:13)
[2017-02-18] MEDS ORDERED: MARCAINE 0.25% INJ ONE (10:13)
--- NOTE | 2017-02-18 10:15 | DR.UPDATE ---
H&P Update History and Physical Update: History and Physical reviewed and patient examined. Changes noted: NO Yes with the following:Agree with Dr Pereira's H&P. Will procede with right SI joint injection.
[2017-02-18] MEDS ORDERED: MARCAINE 0.5% ONE (10:16)
[2017-02-18 10:56] VITALS: BP 121/69
[2017-02-18] MEDS ORDERED: D5LR 1L W PITOCIN 10 UNITS/L 0 UNITS/0 ML BAG IV ONE (13:36)
[2017-02-18] MEDS ORDERED: LR 1000 ML IV 0 ML IV ONE (13:36)
[2017-02-18] MEDS ORDERED: D5 1/2 NS 1L W PITOCIN 20 UNITS/L 0 UNITS/0 ML BAG IV ONE (13:36)
[2017-02-18] MEDS ORDERED: PITOCIN ONE (13:36)
== END 2017-02-18 10:58 | disposition home or self-care (01) ==
LOC: SURG1 09:46
PROVIDERS: ATTEND Specialist
DX: M53.3 Sacrococcygeal disorders, not elsewhere classified (principal)
CPT/HCPCS: 20610; 76000; S0020; J2001; J2590; J3301; J7120

== ENCOUNTER → 2017-04-22 | Day surgery (SDC) | payer OTHER ==
--- NOTE | 2017-04-22 12:57 | DR.UPDATE ---
H&P Update History and Physical Update: History and Physical reviewed and patient examined. Changes noted: NO Yes with the following:agree with H&P from Dr Pereira. will proceed with L4-5, L5-S1 left facet injection
[2017-04-22] MEDS: XYLOCAINE-MPF 1% ONE ×2 (13:04→13:06)
[2017-04-22] MEDS: KENALOG INJ 40 MG IM ONE ×2 (13:07→13:10)
[2017-04-22] MEDS: MARCAINE 0.5% ONE ×2 (13:07→13:10)
[2017-04-22 13:18] VITALS: BP 133/79
== END | disposition home or self-care (01) | DRG 552 ==
LOC: SURG1 12:18
PROVIDERS: ATTEND Specialist
PROC: 3E0U3BZ Introduction of Anesthetic Agent into Joints, Percutaneous Approach (ICD-10-PCS; 2017-04-22)
PROC: 3E0U33Z Introduction of Anti-inflammatory into Joints, Percutaneous Approach (ICD-10-PCS; principal; 2017-04-22 13:00)
DX: M53.3 Sacrococcygeal disorders, not elsewhere classified (principal); M51.36 Other intervertebral disc degeneration, lumbar region; M51.37 Other intervertebral disc degeneration, lumbosacral region
CPT/HCPCS: 64493; 64494; 76000; S0020; J3301